=== PATIENT | female | born 1975 | race African-American/Black ===

== ENCOUNTER 2018-05-15 23:29 | Emergency (ER) | payer BC, OTHER ==
[~2018-05-15] VITALS: Ht 167.6 cm; Wt 114.8 kg
[2018-05-16 00:02] VITALS: BP 146/76
[2018-05-16] MEDS ORDERED: IOHEXOL 300 MG/ML 100ML BOTTLE IJ ONE (00:17)
[2018-05-16] MEDS ORDERED: TETANUS-DIPTH-ACEL PERTUSSIS 0.5ML SYRG IM ONE (01:00)
[2018-05-16] MEDS ORDERED: KETOROLAC TROMETH 30 MG/ML 1ML VIAL IV ONE (01:00)
== END 2018-05-16 04:29 | disposition home or self-care (01) ==
LOC: EDBD 23:29 → ER 23:29
DX: S31.110A Laceration without foreign body of abdominal wall, right upper quadrant without penetration into peritoneal cavity, initial encounter (principal); I10 Essential (primary) hypertension; Z90.710 Acquired absence of both cervix and uterus; Z98.51 Tubal ligation status; Z88.1 Allergy status to other antibiotic agents; X58.XXXA Exposure to other specified factors, initial encounter; Y93.89 Activity, other specified; Y99.8 Other external cause status; Y92.89 Other specified places as the place of occurrence of the external cause
CPT/HCPCS: 12001; 74177; 90471; 90715; 96374; 99284; J1885; Q9967